=== PATIENT | female | born 1985 | race African-American/Black ===

== ENCOUNTER 2022-11-27 19:27 | Observation (INO) | payer OTHER ==
[~2022-11-27] VITALS: Ht 160 cm; Wt 70.8 kg
[~2022-11-27 19:27] MED LIST: FERSU300 PO; FLAGYL500 M1 PO
[2022-11-27 19:48] LABS: BASOPHILS ABSOLUTE AUTO 0.06 K/mm3 (0.00-0.23); BASOPHILS PERCENT AUTO 1 % (0-2); EOSINOPHILS ABSOLUTE AUTO 0.07 K/mm3 (0.00-0.68); EOSINOPHILS PERCENT AUTO 1 % (0-6); Hematocrit 41.3 % (33.0-51.0); Hemoglobin 13.8 g/dL (11.5-16.0); IMMATURE GRAN ABSOLUTE AUTO 0.03 K/mm3 (0.00-0.10); IMMATURE GRAN PERCENT AUTO 0 % (0-1); LYMPHOCYTES ABSOLUTE AUTO 3.14 K/mm3 (0.84-5.20); LYMPHOCYTES PERCENT AUTO 29 % (21-46); MONOCYTES ABSOLUTE AUTO 0.64 K/mm3 (0.16-1.47); MONOCYTES PERCENT AUTO 6 % (4-13); Mean Corpuscular HGB 29.1 pg (26.0-34.0); Mean Corpuscular HGB Conc 33.4 g/dL (31.5-36.5); Mean Corpuscular Volume 87 fL (80-100); Mean Platelet Volume 9.7 fL (9.1-12.4); NEUTROPHILS ABSOLUTE AUTO 6.98 K/mm3 (1.96-9.15); NEUTROPHILS PERCENT AUTO 64 % (41-73); Platelet Count 447 K/mm3 (150-400); RDW Coefficient Variation 13.2 % (11.7-14.2); Red Blood Cell Count 4.75 M/mm3 (3.80-5.20); White Blood Cell Count 10.92 K/mm3 (4.00-11.30)
[2022-11-27 20:11] LABS: Albumin, Blood 2.6 g/dL (3.4-5.0); Albumin/Globulin Ratio 0.8 (0.8-1.8); Bilirubin, Total 0.6 mg/dL (0.1-1.0); Bun/Creatinine Ratio 17.7 (12.0-20.0); Calcium, Blood 8.5 mg/dL (8.5-10.1); Creatinine, Blood 0.9 mg/dL (0.40-1.00); Globulin, Blood 3.2 g/dL (2.2-4.0); Potassium, Blood 4.6 mmol/L (3.5-5.5); Total Protein, Blood 5.8 g/dL (6.4-8.2)
[2022-11-27 20:19] LABS: Source, Urine Clean Catch
[2022-11-27 20:20] LABS: Bilirubin, Urine Neg (Neg); Blood, Urine Neg (Neg); Glucose Qualitative, Urine Neg (Neg); Ketones, Urine Neg (Neg); Leukocyte Esterase, Urine Neg (Neg); Nitrite, Urine Neg (Neg); Protein, Urine 3+ (Neg); Specific Gravity, Urine 1.025 (1.003-1.022); Urobilinogen, Urine NORM (Normal)
[2022-11-27 20:48] LABS: Appearance, Urine Clear (Clear); Color, Urine Pale Yellow (P-Yellow)
[2022-11-27 20:49] LABS: Bacteria Many /hpf; Hyaline Casts 0-2 /lpf (0-2); Red Blood Cells, Urine 0-2 /hpf (0-2); Squamous Epithelial Cells Mod /hpf (Few); Transitional Epithelial Cells Rare /hpf (0-Rare)
[2022-11-27 20:50] LABS: Granular Casts 0-2 /lpf (0)
[2022-11-28 02:40] VITALS: BP 132/104
[2022-11-28 04:33] LABS: BASOPHILS ABSOLUTE AUTO 0.08 K/mm3 (0.00-0.23); BASOPHILS PERCENT AUTO 1 % (0-2); EOSINOPHILS ABSOLUTE AUTO 0.05 K/mm3 (0.00-0.68); EOSINOPHILS PERCENT AUTO 1 % (0-6); Hematocrit 39.1 % (33.0-51.0); Hemoglobin 13.2 g/dL (11.5-16.0); IMMATURE GRAN ABSOLUTE AUTO 0.03 K/mm3 (0.00-0.10); IMMATURE GRAN PERCENT AUTO 0 % (0-1); LYMPHOCYTES ABSOLUTE AUTO 3.13 K/mm3 (0.84-5.20); LYMPHOCYTES PERCENT AUTO 29 % (21-46); MONOCYTES ABSOLUTE AUTO 0.68 K/mm3 (0.16-1.47); MONOCYTES PERCENT AUTO 6 % (4-13); Mean Corpuscular HGB 28.9 pg (26.0-34.0); Mean Corpuscular HGB Conc 33.8 g/dL (31.5-36.5); Mean Corpuscular Volume 86 fL (80-100); NEUTROPHILS ABSOLUTE AUTO 6.71 K/mm3 (1.96-9.15); NEUTROPHILS PERCENT AUTO 63 % (41-73); Platelet Count 407 K/mm3 (150-400); RDW Coefficient Variation 13.3 % (11.7-14.2); RDW Standard Deviation 41.6 fL (35.1-46.3); Red Blood Cell Count 4.56 M/mm3 (3.80-5.20); White Blood Cell Count 10.68 K/mm3 (4.00-11.30)
[2022-11-28 04:59] LABS: Albumin, Blood 2.4 g/dL (3.4-5.0); Albumin/Globulin Ratio 0.9 (0.8-1.8); Bilirubin, Total 0.5 mg/dL (0.1-1.0); Bun/Creatinine Ratio 17.8 (12.0-20.0); Calcium, Blood 8.1 mg/dL (8.5-10.1); Creatinine, Blood 0.84 mg/dL (0.40-1.00); Globulin, Blood 2.8 g/dL (2.2-4.0); Potassium, Blood 4.5 mmol/L (3.5-5.5); Total Protein, Blood 5.2 g/dL (6.4-8.2)
[2022-11-28 07:54] VITALS: BP 146/115
[2022-11-28 08:56] VITALS: BP 135/111
--- NOTE | 2022-11-28 14:14 | NUR ---
WITHDRAWL: PATIENT PREVIOUSLY REPORTED TO THE RN THAT HER METH HAD BEEN CUT WITH FENTANYL FOR THE PAST YEAR OR SO. PATIENT IS STARTING TO EXHIBIT SYMPTOMS OF WITHDRAWL SUCH SWEATING, CHILLS, SHORTNESS OF BREATH, AND GENERAL MALAISE. DISCUSSED WITH DR. WISE AND RECEIVED NEW ORDERS. MEDICATED PATIENT PER NEW ORDERS WITH OXYCODONE. PATIENT REPORTED THAT THIS MADE HER SYMPTOMS WORSE. DISCUSSED WITH DR. WISE. NEW ORDRS RECEIVED.
[2022-11-28 14:48] VITALS: BP 132/107
[2022-11-28 14:59] LABS: Candida species (DNA Probe) Negative (NEGATIVE); G. vaginalis (DNA Probe) Positive (NEGATIVE); T. vaginalis (DNA Probe) Negative (NEGATIVE)
--- NOTE | 2022-11-28 19:29 | NUR ---
END OF SHIFT SUMMARY: THROUGHOUT SHIFT PATIENT REPORTED MILD NAUSEA. THIS WAS DECREASED WITH PRN ZOFRAN. PATIENT WAS ABLE TO TOLERATE BREAKFAST AND LUNCH WITHOUT DIFFICULTY. BY CHANGE OF SHIFT, PATIENT REPORTED THAT SHE IS FEELING INCREASINGLY UNCOMFORTABLE IN HER GI TRACT. PATIENT PROVIDED MORE INFORMATION, MAINLY THAT SHE HAS NOT HAD A FULL BOWEL MOVEMENT FOR THE PAST TWO WEEKS. SHE REPORTED THAT SHE HAD A SMALL BM ABOUT 2 DAYS AGO. NIGHT RN AWARE. PATIENT DISPLAYED SOME SIGNS AND SYMPTOMS OF WITHDRAWAL TODAY. PATIENT REPORTED THAT HER METH HAS BEEN CUT WITH FENTANYL FOR THE PAST YEAR. PATIENT DID NOT RESPOND WELL TO THE PRN OXYCODONE, BUT DID HAVE POSITIVE RESULTS WITH THE PRN ATIVAN FOR ASSISTING WITH THE WITHDRAWAL. PATIENT DOES HAVE SOME RELAXATION STRATEGIES AND WAS ABLE TO UTILIZE THESE TO CALM HERSELF DURING THE DAY. PATIENT HAD MINIMAL FLUID INTAKE. IVFS CONTINUED. PATIENT REPORTED GREAT IMPROVEMENT IN THE COLOR OF HER URINE TO A YELLOW. VAGINAL SWABS OBTAINED AND SENT TO MICROBIOLOGY.
[2022-11-28 21:36] VITALS: BP 131/100
[2022-11-29 03:20] VITALS: BP 130/104
--- NOTE | 2022-11-29 03:54 | NUR ---
SHIFT HAS BEEN MOSTLY UNREMARKABLE. PT NPO SINCE MIDNIGHT PENDING LIKELY HIDA SCAN TO BE PERFORMED TODAY. ADMINISTERED PRN ATIVAN ONE TIME LATE LAST NIGHT PER PT REQUEST. PRN HEMORRHOID CREAM APPLIED ONE TIME. PT HAS SLEPT SPORADICALLY BUT IS RESTING COMFORTABLY IN BED. AT SHIFT REPORT, PT REVEALED THAT ALTHOUGH SHE HAS HAD SMALL BMs RECENTLY HER LAST LARGE BM WAS ABOUT 2 WEEKS AGO WHICH APPEARED TO BE NEWS TO DAY SHIFT STAFF. STARTED DAILY MIRALAX, GAVE 1 BROWN COW. NO BM NOTED THUS FAR THIS SHIFT. FLUIDS FINISHED INFUSING EARLY THIS MORNING SINCE WHICH TIME PT HAS BEEN SALINE LOCKED. SATTING WELL ON ROOM AIR. AOX4, COOPERATIVE WITH CARE. INDEPENDENT WITHIN ROOM. BED LOCKED IN LOWEST POSITION. CALL LIGHT LEFT WITHIN REACH.
[2022-11-29 07:11] LABS: HIV AB/P24 AG SCREEN Non Reactive (Non Reactive)
[2022-11-29 15:11] LABS: HBSAG SCREEN Negative (Negative); HCV AB Non Reactive (Non Reactive); HEP A AB, IGM Negative (Negative); HEP B CORE AB, IGM Negative (Negative)
[2022-11-29 15:17] VITALS: BP 137/113
--- NOTE | 2022-11-29 17:36 | NUR ---
PATIENT A/OX4, INDEPENDENT IN ROOM. PATIETN UNABLE TO HAVE A SIGNIFICANT BM TODAY DESPITE MIRALX, FLEETS ENEMA AND LACTULOSE. PATIENT REPORTS PASSING GAS AND DOES HAVE HYPOACTIVE BOWEL TONES. ATIVAN GIVEN X1 TODAY FOR ANXIETY. STARTED ON CLONIDINE FOR ELEVATED B/P. PATIENT COOPERATIVE WITH CARE AND CALLS APPROPRIATELY FOR ASSISTANCE.
[2022-11-30 01:08] LABS: CHLAMYDIA TRACHOMATIS, NAA Negative (Negative)
[2022-11-30 06:00] LABS: Albumin, Blood 2.3 g/dL (3.4-5.0); Albumin/Globulin Ratio 0.9 (0.8-1.8); Bilirubin, Total 0.5 mg/dL (0.1-1.0); Bun/Creatinine Ratio 17.6 (12.0-20.0); Calcium, Blood 7.8 mg/dL (8.5-10.1); Creatinine, Blood 1.02 mg/dL (0.40-1.00); Globulin, Blood 2.7 g/dL (2.2-4.0); Potassium, Blood 4.4 mmol/L (3.5-5.5); Thyroid Stimulating Hormone 2.47 uIU/mL (0.360-4.800)
[2022-11-30 07:18] VITALS: BP 120/94
[2022-11-30] MEDS ORDERED: PREPARATION H PR (10:25)
[2022-11-30] MEDS ORDERED: CARV6.25 PO (10:26)
[2022-11-30] MEDS ORDERED: SENNA PLUS PO (10:28)
[2022-11-30] MEDS ORDERED: MIRALAX17 GM PO (10:29)
--- NOTE | 2022-11-30 14:32 | NUR ---
PATIENT D/C'D TO HOME WITH NEIGHBOR. DC INSTRUCTIONS AND EDUCATION DISCUSSED WITH PATIENT AND COPY PROVIDED. RX MEDICATIONS FAXED TO [facility] [address]. PATIENT DENIES ANY FURTHER QUESTIONS OR CONCERNS.
[2022-12-03] MEDS ORDERED: Protonix40 MG PO (00:38)
[2022-12-03] MEDS ORDERED: PROM25 PO (00:38)
== END 2022-11-30 14:26 | disposition home or self-care (01) ==
LOC: ER 19:27 → MEDS 19:28 → ENPENDDIS 11-30 09:44 → MEDS 11-30 14:26
PROVIDERS: Family Medicine; Internal Medicine; Student in an Organized Health Care Education/Training Program; ADMIT Student in an Organized Health Care Education/Training Program
DX: K59.02 Outlet dysfunction constipation (principal); R74.01 Elevation of levels of liver transaminase levels; E86.0 Dehydration; R11.0 Nausea; F15.23 Other stimulant dependence with withdrawal; K75.9 Inflammatory liver disease, unspecified; D75.839 Thrombocytosis, unspecified; Z79.899 Other long term (current) drug therapy
CPT/HCPCS: 36415; 76705; 78226; 80053; 80074; 81001; 81025; 83690; 84443; 85025; 86592; 87086; 87389; 87480; 87491; 87510; 87591; 87660; 94760; 96360; 96361; 96374; 99285-25; A9270; A9537; G0378; G0480; J0696; J1650; J7030

== ENCOUNTER 2023-01-26 19:50 | Emergency (ER) | payer OTHER ==
[~2023-01-26] VITALS: Ht 160 cm; Wt 73.2 kg
[~2023-01-26 19:50] MED LIST changes: +CARV6.25 PO; +MIRALAX17 GM PO; +PREPARATION H PR; +PROM25 PO; +Protonix40 MG PO; +SENNA PLUS PO
[2023-01-26 20:56] LABS: BASOPHILS ABSOLUTE AUTO 0.07 K/mm3 (0.00-0.23); BASOPHILS PERCENT AUTO 1 % (0-2); EOSINOPHILS ABSOLUTE AUTO 0.07 K/mm3 (0.00-0.68); EOSINOPHILS PERCENT AUTO 1 % (0-6); Hematocrit 37.1 % (33.0-51.0); Hemoglobin 12.1 g/dL (11.5-16.0); IMMATURE GRAN ABSOLUTE AUTO 0.05 K/mm3 (0.00-0.10); IMMATURE GRAN PERCENT AUTO 1 % (0-1); LYMPHOCYTES ABSOLUTE AUTO 3.14 K/mm3 (0.84-5.20); LYMPHOCYTES PERCENT AUTO 29 % (21-46); MONOCYTES ABSOLUTE AUTO 0.65 K/mm3 (0.16-1.47); MONOCYTES PERCENT AUTO 6 % (4-13); Mean Corpuscular HGB 26.5 pg (26.0-34.0); Mean Corpuscular HGB Conc 32.6 g/dL (31.5-36.5); Mean Corpuscular Volume 81 fL (80-100); NEUTROPHILS PERCENT AUTO 64 % (41-73); RDW Coefficient Variation 15.9 % (11.7-14.2); RDW Standard Deviation 46.7 fL (35.1-46.3); Red Blood Cell Count 4.56 M/mm3 (3.80-5.20); White Blood Cell Count 10.98 K/mm3 (4.00-11.30)
[2023-01-26 21:01] LABS: Mean Platelet Volume 9.9 fL (9.1-12.4); Platelet Count 381 K/mm3 (150-400)
[2023-01-26 21:04] LABS: Albumin, Blood 2.8 g/dL (3.4-5.0); Albumin/Globulin Ratio 0.7 (0.8-1.8); Bilirubin, Total 0.8 mg/dL (0.1-1.0); Bun/Creatinine Ratio 18.9 (12.0-20.0); Calcium, Blood 8.3 mg/dL (8.5-10.1); Creatinine, Blood 0.95 mg/dL (0.40-1.00); Globulin, Blood 3.9 g/dL (2.2-4.0); Potassium, Blood 4.1 mmol/L (3.5-5.5); Total Protein, Blood 6.7 g/dL (6.4-8.2)
[2023-01-26] MEDS ORDERED: FUROSEMIDE40 MG PO (23:15)
[2023-01-26 23:54] LABS: Magnesium, Blood 1.6 mg/dL (1.6-2.4)
[2023-01-27] MEDS ORDERED: FURO20 PO (00:21)
[2023-01-27] MEDS ORDERED: LISI5 PO (00:21)
[2023-01-27] MEDS ORDERED: METO25ER PO (00:21)
[2023-01-27] MEDS ORDERED: FUROSEMIDE40 MG PO (00:21)
[2023-01-27 00:37] VITALS: BP 124/111
== END 2023-01-27 00:24 | disposition home or self-care (01) ==
LOC: ER 19:50
PROVIDERS: Physician Assistant
DX: I50.1 Left ventricular failure, unspecified (principal); R06.01 Orthopnea; Z87.891 Personal history of nicotine dependence
CPT/HCPCS: 71046; 80053; 83735; 83880; 85025; 99284-25; A9270

== ENCOUNTER → 2023-02-01 | Outpatient (CLI) | payer OTHER ==
[~2023-02-01] MED LIST changes: +FURO20 PO; +FUROSEMIDE40 MG PO; +IBUP800 PO; +LISI5 PO; +METO25ER PO
[2023-02-01 18:07] LABS: BASOPHILS PERCENT AUTO 1 % (0-2); EOSINOPHILS ABSOLUTE AUTO 0.09 K/mm3 (0.00-0.68); EOSINOPHILS PERCENT AUTO 1 % (0-6); Hemoglobin 12.3 g/dL (11.5-16.0); IMMATURE GRAN ABSOLUTE AUTO 0.05 K/mm3 (0.00-0.10); IMMATURE GRAN PERCENT AUTO 0 % (0-1); LYMPHOCYTES ABSOLUTE AUTO 3.91 K/mm3 (0.84-5.20); LYMPHOCYTES PERCENT AUTO 33 % (21-46); MONOCYTES ABSOLUTE AUTO 0.91 K/mm3 (0.16-1.47); MONOCYTES PERCENT AUTO 8 % (4-13); Mean Corpuscular HGB 25.6 pg (26.0-34.0); Mean Corpuscular HGB Conc 31.5 g/dL (31.5-36.5); Mean Corpuscular Volume 81 fL (80-100); Mean Platelet Volume 9.9 fL (9.1-12.4); NEUTROPHILS ABSOLUTE AUTO 6.98 K/mm3 (1.96-9.15); NEUTROPHILS PERCENT AUTO 58 % (41-73); Platelet Count 477 K/mm3 (150-400); RDW Coefficient Variation 16.4 % (11.7-14.2); RDW Standard Deviation 47.8 fL (35.1-46.3); White Blood Cell Count 12.04 K/mm3 (4.00-11.30)
[2023-02-01 18:45] LABS: Albumin, Blood 2.9 g/dL (3.4-5.0); Albumin/Globulin Ratio 0.7 (0.8-1.8); Bilirubin, Total 0.7 mg/dL (0.1-1.0); Bun/Creatinine Ratio 19.2 (12.0-20.0); Calcium, Blood 8.6 mg/dL (8.5-10.1); Creatinine, Blood 1.25 mg/dL (0.40-1.00); Globulin, Blood 3.9 g/dL (2.2-4.0); Potassium, Blood 4.9 mmol/L (3.5-5.5); Total Protein, Blood 6.8 g/dL (6.4-8.2)
== END | disposition home or self-care (01) ==
LOC: LAB 15:55 → LAB SHORT 15:55
PROVIDERS: Physician Assistant
DX: I50.9 Heart failure, unspecified (principal); I42.9 Cardiomyopathy, unspecified
CPT/HCPCS: 80053; 83880; 85025

== ENCOUNTER 2023-02-02 11:12 | Inpatient (IN) | payer OTHER ==
[~2023-02-02] VITALS: Ht 160 cm; Wt 63.1 kg
[~2023-02-02 11:12] MED LIST changes: -IBUP800 PO
[2023-02-02 12:27] LABS: BASOPHILS ABSOLUTE AUTO 0.09 K/mm3 (0.00-0.23); BASOPHILS PERCENT AUTO 1 % (0-2); EOSINOPHILS ABSOLUTE AUTO 0.12 K/mm3 (0.00-0.68); EOSINOPHILS PERCENT AUTO 1 % (0-6); Hematocrit 37.5 % (33.0-51.0); Hemoglobin 12.2 g/dL (11.5-16.0); IMMATURE GRAN ABSOLUTE AUTO 0.05 K/mm3 (0.00-0.10); IMMATURE GRAN PERCENT AUTO 1 % (0-1); LYMPHOCYTES ABSOLUTE AUTO 3.52 K/mm3 (0.84-5.20); LYMPHOCYTES PERCENT AUTO 32 % (21-46); MONOCYTES ABSOLUTE AUTO 0.85 K/mm3 (0.16-1.47); MONOCYTES PERCENT AUTO 8 % (4-13); Mean Corpuscular HGB 26.1 pg (26.0-34.0); Mean Corpuscular HGB Conc 32.5 g/dL (31.5-36.5); Mean Corpuscular Volume 80 fL (80-100); Mean Platelet Volume 9.5 fL (9.1-12.4); NEUTROPHILS ABSOLUTE AUTO 6.23 K/mm3 (1.96-9.15); NEUTROPHILS PERCENT AUTO 57 % (41-73); Platelet Count 411 K/mm3 (150-400); RDW Coefficient Variation 16.5 % (11.7-14.2); Red Blood Cell Count 4.67 M/mm3 (3.80-5.20); White Blood Cell Count 10.86 K/mm3 (4.00-11.30)
[2023-02-02 12:42] LABS: Albumin, Blood 2.8 g/dL (3.4-5.0); Albumin/Globulin Ratio 0.7 (0.8-1.8); Bilirubin, Direct 0.4 mg/dL (0.0-0.3); Bilirubin, Indirect 0.3 mg/dL (0.1-0.7); Bilirubin, Total 0.7 mg/dL (0.1-1.0); Bun/Creatinine Ratio 21.3 (12.0-20.0); Calcium, Blood 8.4 mg/dL (8.5-10.1); Creatinine, Blood 0.99 mg/dL (0.40-1.00); Globulin, Blood 3.8 g/dL (2.2-4.0); Total Protein, Blood 6.6 g/dL (6.4-8.2)
[2023-02-02 15:33] VITALS: BP 118/91
[2023-02-02] MEDS ORDERED: IBUP800 PO (18:13)
[2023-02-02] MEDS ORDERED: PROM25 PO (18:14)
--- NOTE | 2023-02-02 19:20 | NUR ---
SHIFT REPORT PATIENT ARRIVED TO FLOOR AT 1630, NO ACUTE EVENTS SINCE ARRIVAL. PATIENT UP TO BATHROOM FOR URINATION INDEPENDENT. CALL LIGHT IN REACH, BED IN LOW POSIITION. PATIENT CALLS APPROPRIATELY
[2023-02-02 19:35] VITALS: BP 125/90
[2023-02-03 04:40] VITALS: BP 112/76
[2023-02-03 06:17] LABS: Albumin, Blood 2.5 g/dL (3.4-5.0); Albumin/Globulin Ratio 0.7 (0.8-1.8); Bilirubin, Total 0.6 mg/dL (0.1-1.0); Bun/Creatinine Ratio 23.3 (12.0-20.0); Calcium, Blood 8.2 mg/dL (8.5-10.1); Creatinine, Blood 1.16 mg/dL (0.40-1.00); Globulin, Blood 3.5 g/dL (2.2-4.0); Magnesium, Blood 1.7 mg/dL (1.6-2.4); Potassium, Blood 4.2 mmol/L (3.5-5.5)
--- NOTE | 2023-02-03 06:28 | NUR ---
Shift Summary Pt states edema in feet is greatly improved but still feels legs are very swollen. She is on 1500 mL/day fluid restriction. She states she normally has dry heaving at night, and this AM she had an episode of nausea which was well controlled with PRN SL Zofran. AOx4, independent in room, slept well t/o the night.
[2023-02-03 08:00] VITALS: BP 118/95
[2023-02-03 15:10] VITALS: BP 113/83
--- NOTE | 2023-02-03 18:14 | NUR ---
SHIFT SUMMARY PATIENT REPORTS SIGNIFICANT DECREASE IN CHEST PRESSURE, HOWEVER FLUID APPEARS TO BE INCREASING IN LEGS AGAIN AND LEGS FEEL MORE HEAVY TO PATIENT. SHE C/O NAUSEA THIS EVENING, RESOLVED WITH ZOFRAN ODT. PATIENT VOIDING AND KEEPING STRICT I&0 RESTRICTIONS. BED IN LOW POSITION, CALL LIGHT IN REACH. PATIENT CALLS APPROPRIATELY.
[2023-02-03 21:30] VITALS: BP 108/86
--- NOTE | 2023-02-04 02:37 | NUR ---
Increased Edema - called hospitalist Pt had increased edema from last night and BNP is trending up over 1000 points from yesterday. Called hospitalist who ordered 60mg Lasix IV now.
[2023-02-04 03:31] VITALS: BP 108/85
[2023-02-04 05:11] LABS: BASOPHILS ABSOLUTE AUTO 0.07 K/mm3 (0.00-0.23); BASOPHILS PERCENT AUTO 1 % (0-2); EOSINOPHILS ABSOLUTE AUTO 0.14 K/mm3 (0.00-0.68); EOSINOPHILS PERCENT AUTO 1 % (0-6); Hematocrit 35.4 % (33.0-51.0); Hemoglobin 11.5 g/dL (11.5-16.0); IMMATURE GRAN ABSOLUTE AUTO 0.03 K/mm3 (0.00-0.10); IMMATURE GRAN PERCENT AUTO 0 % (0-1); LYMPHOCYTES ABSOLUTE AUTO 3.74 K/mm3 (0.84-5.20); LYMPHOCYTES PERCENT AUTO 37 % (21-46); MONOCYTES ABSOLUTE AUTO 0.92 K/mm3 (0.16-1.47); MONOCYTES PERCENT AUTO 9 % (4-13); Mean Corpuscular HGB 25.7 pg (26.0-34.0); Mean Corpuscular HGB Conc 32.5 g/dL (31.5-36.5); Mean Corpuscular Volume 79 fL (80-100); Mean Platelet Volume 9.5 fL (9.1-12.4); NEUTROPHILS PERCENT AUTO 51 % (41-73); Platelet Count 374 K/mm3 (150-400); RDW Coefficient Variation 16.5 % (11.7-14.2); RDW Standard Deviation 46.1 fL (35.1-46.3); Red Blood Cell Count 4.48 M/mm3 (3.80-5.20)
[2023-02-04 05:39] LABS: Albumin, Blood 2.6 g/dL (3.4-5.0); Albumin/Globulin Ratio 0.7 (0.8-1.8); Bilirubin, Total 0.7 mg/dL (0.1-1.0); Bun/Creatinine Ratio 24.2 (12.0-20.0); Calcium, Blood 8.9 mg/dL (8.5-10.1); Creatinine, Blood 1.2 mg/dL (0.40-1.00); Globulin, Blood 3.6 g/dL (2.2-4.0); Magnesium, Blood 1.7 mg/dL (1.6-2.4); Phosphorus, Blood 4.9 mg/dL (2.5-4.9); Potassium, Blood 3.6 mmol/L (3.5-5.5); Total Protein, Blood 6.2 g/dL (6.4-8.2)
--- NOTE | 2023-02-04 05:52 | NUR ---
Shift Summary Pt had increased edema tonight, called hospitalist who ordered 60 mg IV Lasix 1 time. Pt also noted she was feeling gassy and had some GI upset as well as a new sore throat and cough. Hospitalist notified who ordered a Covid swab, results are pending. Pt was able to sleep for some of the night but was interrupted by frequent bathroom trips. She is AOx4 and independent in the room.
[2023-02-04 07:35] VITALS: BP 108/83
[2023-02-04 09:42] LABS: SARS-Cov-2 (COVID-19) PCR, MMC POSITIVE (NEGATIVE)
[2023-02-04 15:42] VITALS: BP 112/88
[2023-02-04 19:22] VITALS: BP 107/80
--- NOTE | 2023-02-04 20:00 | NUR ---
DAY SHIFT SUMMARY PT A/OX4. TESTED POSITVE FOR COVID TODAY. ECHO RESULTS REVIEWED WITH DR DEGROOT AT BEDSIDE. EF 10-15%. PT REQUESTED TO STOP CONVERSATION AND CONTINUE AT A LATER TIME. PHONE CALL FROM PT MOM; DISUSSED RESULTS OF ECHO PER PT REQUEST. PT INDEPENDENT AND ABLE TO MAKE NEEDS KNOWN.
[2023-02-05 02:29] VITALS: BP 108/90
[2023-02-05 07:19] LABS: Albumin, Blood 2.6 g/dL (3.4-5.0); Anion Gap 8 mmol/L (6-16); Blood Urea Nitrogen 25 mg/dL (8-24); Bun/Creatinine Ratio 21.9 (12.0-20.0); CO2, Blood 28 mmol/L (21-32); Calcium, Blood 8.8 mg/dL (8.5-10.1); Chloride, Blood 100 mmol/L (98-108); Creatinine, Blood 1.14 mg/dL (0.40-1.00); Glomerular Filtration Rate 63 (60-); Glucose, Blood 111 mg/dL (70-99); Phosphorus, Blood 4.6 mg/dL (2.5-4.9); Sodium, Blood 136 mmol/L (136-145)
[2023-02-05 07:47] VITALS: BP 108/87
--- NOTE | 2023-02-05 13:32 | NUR ---
DR BAJWA NOTIFIED AT 1331 ON 02/05/23 THAT PATIENT WAS HAVING SOME ST ELEVATIONS ON TELE PER [employer] ATTENDANT. DR BAJWA TO REVIEW TELE AND THEN CALL FOR FURTHER ORDERS. X-RAY TO BE ORDERED IF IT HAS NOT BEEN DONE ALREADY. PT STATES THAT SHE FEELS "MISERABLE." COMPLAINS OF HEADACHE, ANXIETY, CHEST PAIN THAT SHE DIDNT RATE, AND FEVER. BED IN LOW POSITION, CALL LIGHT WITHIN REACH.
[2023-02-05 15:32] VITALS: BP 104/73
--- NOTE | 2023-02-05 16:58 | NUR ---
SHIFT SUMMARY PT AXO, ANXIOUS BUT COOPERATIVE WITH CARE. PT MEDICATED FOR PAIN PER EMAR. PT HAS TEMP OF 99.1 TO 100.3 DESPITE TYLENOL PER EMAR. PT REPORTS FEELING "MISERABLE" AND PAINFUL ANASARCA FROM HIPS TO BLE. AWATING CHEST X-RAY AT THIS TIME. 838 ML INTAKE IN SO FAR THIS SHIFT AND 4000ML OUT. PT AWARE AND COMPLIANT WITH FR. PT HAD "MILD" ST ELEVATION ON TELE, SEE PRIOR NOTE, DR BAJWA AWARE AND NO NEW ORDERS AT THIS TIME BUT THIS NURSE WILL CONTINUE TO MONITOR. PT 98% ON RA. COUGHING AND PRODUCING SMALL AMOUNT OF SPUTUM. BED IN LOW POSITION, CALL LIGHT WITHIN REACH. IV PATENT AND SALINE LOCKED
[2023-02-05 19:14] VITALS: BP 113/77
[2023-02-05 20:08] VITALS: BP 98/78
[2023-02-06] MEDS ORDERED: CARV6.25 PO (02:46)
[2023-02-06] MEDS ORDERED: METR500 PO (02:48)
[2023-02-06] MEDS ORDERED: FERSU300 PO (02:48)
[2023-02-06] MEDS ORDERED: DOCUZEN 8.6-501 EACH PO (02:48)
[2023-02-06] MEDS ORDERED: MIRALAX17 GM PO (02:50)
[2023-02-06] MEDS ORDERED: [UNRECOGNIZED DRUG - OTHER] PR (02:50)
--- NOTE | 2023-02-06 06:32 | NUR ---
SENA GAXIOLA. PT VERY UPSET LAST NOC SHE WANTED TO KNOW WHY SHE DID NOT GET REMDESAVER OR SOMETHING FOR THE COVID. SHE SAID SHE W FEELING LIKE SHE WAS BEING NEGLECTED. TOLD HER WAS UNSURE THE REASON SHE DID NOT GET MEDS FOR COVID, TALKED WITH PT FOR A WHILE THEN PT CALM AND NOT SEEMING TO BE UPSET ANY MORE. PT MEDICATED FOR FEVER AND A LOPEZ, WITH TYLENOL. PT SEEMED TO REST LAST NOC. FIRE SAFETY REVIEWED. PT ALSO CONCERNED WITH PAIN TO THIGHS. PT DID NOT HAVE PITTING EDEMA TO LEGS LIKE SHE HAD DAY BEFORE. AND PT THOUGHT THAT PART MIGHT BE FEELING BETTER. PT HAD CONCERNS ABOUT WHAT TO EAT AND DO WHEN SHE WENT HOME TALKED TO PT ABOUT DAILY WT AND AVOIDING SALT, PT NEEDING SOME GUIDENCE FOR NUTRIONIST.
[2023-02-06 07:53] VITALS: BP 108/96
[2023-02-06 10:09] LABS: BASOPHILS ABSOLUTE AUTO 0.04 K/mm3 (0.00-0.23); BASOPHILS PERCENT AUTO 0 % (0-2); EOSINOPHILS ABSOLUTE AUTO 0.01 K/mm3 (0.00-0.68); EOSINOPHILS PERCENT AUTO 0 % (0-6); Hematocrit 39.2 % (33.0-51.0); Hemoglobin 12.8 g/dL (11.5-16.0); IMMATURE GRAN ABSOLUTE AUTO 0.05 K/mm3 (0.00-0.10); IMMATURE GRAN PERCENT AUTO 1 % (0-1); LYMPHOCYTES ABSOLUTE AUTO 1.07 K/mm3 (0.84-5.20); LYMPHOCYTES PERCENT AUTO 10 % (21-46); MONOCYTES PERCENT AUTO 10 % (4-13); Mean Corpuscular HGB Conc 32.7 g/dL (31.5-36.5); Mean Corpuscular Volume 80 fL (80-100); Mean Platelet Volume 10.2 fL (9.1-12.4); NEUTROPHILS ABSOLUTE AUTO 8.34 K/mm3 (1.96-9.15); NEUTROPHILS PERCENT AUTO 79 % (41-73); Platelet Count 374 K/mm3 (150-400); RDW Coefficient Variation 16.7 % (11.7-14.2); RDW Standard Deviation 47.5 fL (35.1-46.3); Red Blood Cell Count 4.93 M/mm3 (3.80-5.20); White Blood Cell Count 10.61 K/mm3 (4.00-11.30)
[2023-02-06 10:26] LABS: Albumin, Blood 2.9 g/dL (3.4-5.0); Albumin/Globulin Ratio 0.6 (0.8-1.8); Bilirubin, Total 0.7 mg/dL (0.1-1.0); Bun/Creatinine Ratio 21.9 (12.0-20.0); Calcium, Blood 9.1 mg/dL (8.5-10.1); Creatinine, Blood 1.14 mg/dL (0.40-1.00); Globulin, Blood 4.5 g/dL (2.2-4.0); Potassium, Blood 4.3 mmol/L (3.5-5.5); Total Protein, Blood 7.4 g/dL (6.4-8.2)
[2023-02-06 14:55] VITALS: BP 106/70
--- NOTE | 2023-02-06 18:15 | NUR ---
SHIFT SUMMARY PT AxOx4. PLEASANT AND COOPERATIVE WITH CARE. PT DOES HAVE ANXIOUS BEHAVIOR, AND OPENLY DISCUSSES HAVING ANXIETY AND RECENT DX OF BIPOLAR 1. PT REPORTS MINOR COUGH AND SORE THROAT THIS SHIFT. MEDICATED PER EMAR WITH MOUTH SUSPENSION MED. PT ON TELE RUNNING, ST AT 114. PT DENIED CP OR SOB THIS SHIFT. PT HAS BEEN INDEPENDENT IN THE ROOM. HAD SHOWER TODAY. PT REQUESTED EXTRA SNACKS TODAY, STATING HER MEALS ARE TOO SMALL OF PORTIONS FOR HER AND SHE LIKES TO EAT WHEN SHE IS ANXIOUS. PT REPORTS EDEMA SIGNIFICANTLY REDUCED WITH DIURESING TX. PT HAS BEEN COMPLIANT WITH 1500ML FLUID RESTRICTION. PT DID REPORT LOW BACK PAIN THIS SHIFT, WHICH SHE WAS MEDICATED FOR AND PROVIDED A HEATING PAD. PT REPORTED RELIEF. PT IS CURRENTLY STANDING IN HER ROOM. CALL LIGHT IN REACH. PT DENIES ANY NEEDS AT THIS TIME. PT WAS EDUCATED ON FIRE RISK AND SAFETY WITH VERBALIZED UNDERSTANDING.
[2023-02-06 21:06] VITALS: BP 102/79
--- NOTE | 2023-02-07 03:31 | NUR ---
SHIFT MINOR, PT RESTIG IN BED. PT STATED SEROQUEL HELPED HER SLEEP VERY WELL LAST NOC.PT STILL HAS SOME QUESTIONS. PT STATED SHE DOSE NOT HAVE HEP C FAR SHE KNEW AND WAS NOT HAPPY WITH HAVING A DX OF HAVING HEPC ON CHART. PT WOULS ALSO LIKE TO TALK WITH A DIETITION SO WHEN SHE GOES HOME SHE WILL KNOW WHAT TO EAT. TALKED TO PT ABOUT READING LABLES TO WATCH OUT FOR UNKOWN SALT AND TO DO DAILY WTS AT THE SAME TIME EACH DAY AND TO LET DR KNOW IF WT GOES UP 3 LB OR MORE IN 1-2 DAYS. PT HERMILA. FIRE SAFETY REVIEWED.
[2023-02-07 04:20] VITALS: BP 78/57
[2023-02-07 04:21] VITALS: BP 83/55
[2023-02-07 05:55] LABS: BASOPHILS ABSOLUTE AUTO 0.07 K/mm3 (0.00-0.23); BASOPHILS PERCENT AUTO 1 % (0-2); EOSINOPHILS ABSOLUTE AUTO 0.08 K/mm3 (0.00-0.68); EOSINOPHILS PERCENT AUTO 1 % (0-6); Hematocrit 39.2 % (33.0-51.0); Hemoglobin 12.6 g/dL (11.5-16.0); IMMATURE GRAN ABSOLUTE AUTO 0.03 K/mm3 (0.00-0.10); IMMATURE GRAN PERCENT AUTO 0 % (0-1); LYMPHOCYTES ABSOLUTE AUTO 2.37 K/mm3 (0.84-5.20); LYMPHOCYTES PERCENT AUTO 27 % (21-46); MONOCYTES ABSOLUTE AUTO 1.36 K/mm3 (0.16-1.47); MONOCYTES PERCENT AUTO 16 % (4-13); Mean Corpuscular HGB 25.6 pg (26.0-34.0); Mean Corpuscular HGB Conc 32.1 g/dL (31.5-36.5); Mean Corpuscular Volume 80 fL (80-100); Mean Platelet Volume 9.4 fL (9.1-12.4); NEUTROPHILS ABSOLUTE AUTO 4.87 K/mm3 (1.96-9.15); NEUTROPHILS PERCENT AUTO 56 % (41-73); Platelet Count 314 K/mm3 (150-400); RDW Coefficient Variation 16.8 % (11.7-14.2); RDW Standard Deviation 46.9 fL (35.1-46.3); Red Blood Cell Count 4.93 M/mm3 (3.80-5.20); White Blood Cell Count 8.78 K/mm3 (4.00-11.30)
[2023-02-07 06:27] LABS: Bun/Creatinine Ratio 22.6 (12.0-20.0); Calcium, Blood 8.4 mg/dL (8.5-10.1); Creatinine, Blood 1.06 mg/dL (0.40-1.00)
[2023-02-07 07:45] VITALS: BP 90/65
[2023-02-07 07:47] VITALS: BP 84/65
[2023-02-07] MEDS ORDERED: Seroquel Xr50 MG PO (14:13)
[2023-02-07] MEDS ORDERED: FURO40 PO (14:13)
--- NOTE | 2023-02-07 16:10 | NUR ---
PT DISCHARGED FROM UNIT. IV REMOVED. DISCHARGE INSTRUCTIONS REVIEWED. MEDICATIONS FAXED TO PHARMACY. PT LEFT UNIT VIA WHEEL CHAIR. FRIEND TO DRIVE HOME
== END 2023-02-07 15:24 | disposition home or self-care (01) | DRG 291 ==
LOC: ER 11:12 → MEDS 11:13 → ENPENDDIS 02-07 13:50 → MEDS 02-07 15:24
PROVIDERS: Family Medicine; Internal Medicine; Physician Assistant; ADMIT Hospitalist
DX: I50.21 Acute systolic (congestive) heart failure (principal); U07.1 COVID-19; I42.7 Cardiomyopathy due to drug and external agent; F41.1 Generalized anxiety disorder; F31.9 Bipolar disorder, unspecified; Z86.19 Personal history of other infectious and parasitic diseases; F15.11 Other stimulant abuse, in remission; T43.625A Adverse effect of amphetamines, initial encounter; Z79.811 Long term (current) use of aromatase inhibitors; Z79.899 Other long term (current) drug therapy; Z98.51 Tubal ligation status; Z87.891 Personal history of nicotine dependence
CPT/HCPCS: 36415; 71045; 71046; 80048; 80053; 80069; 80076; 83690; 83735; 83880; 84100; 84484; 85025; 94760; 96374; 99284-25; A9270; C8929; J1650; J1940; Q9957; U0002